=== PATIENT | male | born 1955 | race Caucasian/White ===

== ENCOUNTER 2017-08-28 09:22 | Observation (INO) ==
[2017-08-28] MEDS ORDERED: Naloxone 0.4 MG/ML INJ IVP PRN ×2 (18:28→18:37)
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
[2017-08-28] MEDS: *HR* Heparin 5,000 UNIT/ML VIAL SQ SCH (21:15)
[2017-08-29 06:17] LABS: Basophils % 0.2 %; Hematocrit 44.9 % (37.5-50.1); Hemoglobin 15.6 g/dL (12.9-16.9); Immature Granulocytes % 0.6 % (0-4); Lymphocytes # 1.1 K/mcL (0.6-4.6); Lymphocytes % 12.5 %; Mean Corpuscular HGB Conc 34.7 g/dL (31.6-35.5); Mean Corpuscular Hemoglobin 30.9 pg (28.0-33.3); Mean Corpuscular Volume 88.9 fL (83.0-100.0); Mean Platelet Volume 10.1 fL (9.4-12.4); Monocytes # 1.3 K/mcL (0.0-1.3); Monocytes % 14.2 %; Neutrophils # 6.4 K/mcL (1.6-8.9); Platelet Count 153 K/mcL (140-400); Red Blood Count 5.05 M/mcL (4.19-5.50); Red Cell Distribution Width 13.7 % (11.5-14.5); Segmented Neutrophils % 72.5 %
[2017-08-29] MEDS: *HR* Heparin 5,000 UNIT/ML VIAL SQ SCH (06:17)
[2017-08-29 06:35] LABS: BUN/Creatinine Ratio 13 (6-26); Blood Urea Nitrogen 13 mg/dL (8-26); Calcium 8.4 mg/dL (8.6-10.8); Carbon Dioxide 23 mEq/L (19-29); Chloride 106 mEq/L (98-109); Glucose 120 mg/dL (70-99); Osmolality,Calculated 287 (280-300); Potassium 4.1 mEq/L (3.5-4.5); Sodium 138 mEq/L (136-145); eGFR For African Americans > 60 (> 60); eGFR For Non-African Americans > 60 (> 60)
[2017-08-29] MEDS ORDERED: Acetaminophen 325 MG TABLET PO PRN (08:52)
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
[2017-08-29] MEDS ORDERED: CarBAMazepine XR (12 hr) 100 MG TAB PO SCH (10:30)
--- NOTE | 2017-08-29 11:32 | EEG/EMG/Oth Biometrics Report ---
EEG Procedure Report Date of procedure: 08/29/17 EEG Procedure: Routine EEG Procedure Note: pt with episodes of confusion, h/o Seizures on Carbamazepine for 10 years Technical Description: This is a multichannel digital EEG recording using the international 10-20 placement system. The resting record is fairly well organized and symmetric. A dominant posterior rhythm is seen. It consists of a 8 hertz 20-70 microvolt alpha rhythm. This attenuates with eye opening. During drowsiness, there is mild attenuation and slowing of the background rhythm. Stage II sleep was not achieved. Hyperventilation was not performed. Photic stimulation did not significantly alter the background rhythm. There was noted the presence of a rhythmic sharp discharge in the frontocentral region. This was preceded by some poorly-formed sharpish discharges. This episode lasted for about 2 to 4 seconds. Postepisode, there was some attenuation but not much slowing.these episodes seem to be generalized noted to be intermittent during the study, No clinical seizure activity was noted by the database technician. IMPRESSION: This is an abnormal EEG recording because of the presence of generalized epileptiform discharges. 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 Clinical correlation is suggested If indicated, repeat EEG and/or 24-hour ambulatory EEG monitoring might be useful in the future.
[2017-08-29 15:28] VITALS: BP 128/71
--- NOTE | 2017-08-29 15:54 | Internal Med Progress Note ---
Date of Encounter: 08/29/17 Time of Encounter: 15:40 - Assessment and plan (1) DVT prophylaxis Current Visit: Yes Status: Acute (2) History of seizure disorder Current Visit: Yes Status: Acute - Time Spent With Patient less than 15 minutes - Subjective Interval history: Seen and examined at bedside, patient is new to me. Information obtained from chart review and patient report. Says he is tired but overall significantly improved, feels like he is progressing back to baseline. Besides being tired, he has no complaints. Specifically denies vision changes, no slurred speech, no numbness or tingling. No bowel or bladder incontinence, no evidence of bite tongue. - Constitutional Vitals: Temp Pulse Resp BP Pulse Ox 99.7 F H 72 16 128/71 93 08/29/17 15:26 08/29/17 15:26 08/29/17 15:26 08/29/17 15:26 08/29/17 15:26 General appearance: Present: A&O X 3, no acute distress - Head Head exam: Present: atraumatic, normocephalic - Eye Eye exam: Present: PERRL, conjuntiva pink, sclera anicteric Pupils: Present: PERRL - Neck Neck exam general surgery: Present: supple, trachea midline. Absent: lymphadenopathy - Respiratory Respiratory exam: Present: CTAB. Absent: accessory muscle use, rales, rhonchi, wheezes - Cardiovascular Cardiovascular exam: Present: RRR, +S1, +S2. Absent: diastolic murmur, gallop, rubs, systolic murmur - GI/Abdominal GI/Abdominal exam: Present: normal bowel sounds, soft, no peritoneal signs. Absent: distended, tenderness - Extremities Exam Extremities exam: Present: warm, radial pulses palpable and symmetrical. Absent : calf tenderness, cyanotic, pedal edema - Neurological Exam Neurological exam: Present: CN II-XII intact, oriented X3, no focal deficits. Absent: pronater drift, facial droop, speech deficit - Skin Skin exam: Present: dry, intact Internal Medicine: Result - Labs CBC & Chem 7: 08/29/17 05:47 08/29/17 05:47 Labs: Short CBC 08/29/17 Range/Units 05:47 WBC 8.9 (4.3-11.1) K/mcL Hgb 15.6 (12.9-16.9) g/dL Hct 44.9 (37.5-50.1) % Plt Count 153 (140-400) K/mcL Neutrophils # 6.4 (1.6-8.9) K/mcL BMP 08/29/17 05:47 Sodium 138 Potassium 4.1 Chloride 106 Carbon Dioxide 23 BUN 13 Creatinine 1.01 Glucose 120 H Calcium 8.4 L - Impressions Impressions Brain MRI 08/28/17 12:25 IMPRESSION: 1. No acute intracranial abnormality. No acute infarct. 2. Minimal chronic microvascular ischemic change. 3. Minimal sinusitis. D/ / Ra Valiente MD / Ra Valiente MD Interpreting Provider: Ra Valiente MD Head CTA 08/28/17 14:00 IMPRESSION: No acute intracranial abnormality. Mild, less than 50%, stenosis of the internal carotid arteries by NASCET criteria. No intracranial flow-limiting stenosis or aneurysm. D/ / 08/28/2017 16:03:43 Herminia Tapia MD / Pat Santiago Interpreting Provider: Herminia Tapia MD Neck CTA 08/28/17 14:00 IMPRESSION: No acute intracranial abnormality. Mild, less than 50%, stenosis of the internal carotid arteries by NASCET criteria. No intracranial flow-limiting stenosis or aneurysm. D/ / 08/28/2017 16:03:43 Herminia Tapia MD / Pat Santiago Interpreting Provider: Herminia Tapia MD Echocardiogram 08/28/17 18:21 Impressions: LVEF 60%. Indeterminate diastolic function. Normal right ventricular structure and function. No significant valvular dysfunction. No pulmonary hypertension. Left Ventricular Wall Motion: Rest Echo Findings All wall segments showed normal motion. Findings: Study Quality * Technically adequate exam. ECG Findings * Normal sinus rhythm. Left Ventricle * LVEF 60%. * Normal LV chamber size, wall thickness and function. * Indeterminate diastolic function. E/A equivocal. Normal TD velocities. Right Ventricle * Normal right ventricular structure and function. Left Atrium * Normal left atrial size. Right Atrium * Normal right atrial size. Aortic Valve * Aortic valve not well visualized. * No aortic stenosis. * No aortic regurgitation. Mitral Valve * Normal mitral valve structure. * No mitral regurgitation. * No mitral stenosis. Tricuspid Valve * Tricuspid valve not well visualized. * No tricuspid regurgitation. Pulmonic Valve * Pulmonic valve is not well visualized. * No pulmonic stenosis. * No pulmonic regurgitation. Pulmonary Artery * Pulmonary artery not well visualized. Aorta * Normally sized aortic root. Pericardium * There is no pericardial effusion present. Interatrial Septum * Interatrial septum not well evaluated. IVC * The IVC is not well evaluated. Consult Discharge Plan - Plan Referrals: Salma Pearson, [employer] [Primary Care Provider] -
--- NOTE | 2017-08-29 15:59 | Discharge Summary ---
Date of Encounter: 08/29/17 Time of Encounter: 15:54 - Discharge Diagnosis (1) History of seizure disorder Priority: Primary Status: Acute Comments: Has known seizure disorder, on Tegretol at home. Now with altered cognition on day of presentation. Evaluated by neurology who suspects complex partial seizure. EEG consistent with seizure activity. Continue home Tegretol, add Keppra per neurology recommendations. No driving until he has been cleared by neurology. - Discharge Medications Prescriptions: levETIRAcetam [Keppra] 500 mg PO Q12HR #120 tablet Home Medications: carBAMazepine [Tegretol Xr] 400 mg PO BID 08/28/17 [History] levETIRAcetam [Keppra] 500 mg PO Q12HR #120 tablet 08/29/17 [Rx] Allergies/Adverse Reactions: 3 Allergy/AdvReac Type Severity Reaction Status Date / Time No Known Allergies Allergy Verified 08/28/17 07:15 Procedures/tests Complete & Pending: Procedures Performed prior 72 hours Category Date Time Status CT angio head [CT] Routine Cat Scan 08/28/17 14:[address] angio neck [CT] Routine Cat Scan 08/28/17 14:00 Completed MR head/brain wo con [MR] Routine MRI 08/28/17 12:25 Completed EV echocardiogram Routine Y 08/28/17 18:21 Completed Date of admission: 08/28/17 10:45 Primary care physician: Salma Pearson CNP Consults: 08/28/17 18:30 Consult to Neurology [CONS] Routine Consulting Provider: Neurology [facility] Reason for Consult: TIA/CVA rule out Time Notified: 18:00 Call Completed: Yes 08/29/17 11:45 Consult to Interpret Exam [CONS] Routine Consulting Provider: Nabil Bailon I Consult to Interpret Exam: Interpret EEG Discharging clinician: Magda Quiñonez Anticipated date of discharge: 08/29/17 - Patient Status Disposition: Home, Self-Care Condition: Good Functional capacity at discharge: independent ambulation Overall status at discharge: patient is progressing back to baseline - Discharge Instructions Instructions: Epilepsy (DC), Levetiracetam (By mouth) Follow Up With: Salma Pearson CNP [Primary Care Provider] - Additional Instructions: Do not drive or operate heavy machinery until cleared by neurology - Diet and Activity Activity: increase activity as tolerated Diet: advance to your usual diet Interval History: Seen and examined at bedside, patient is new to me. Information obtained from chart review and patient report. Says he is tired but overall significantly improved, feels like he is progressing back to baseline. Besides being tired, he has no complaints. Specifically denies vision changes, no slurred speech, no numbness or tingling. No bowel or bladder incontinence, no evidence of bite tongue. Discussed case with Dr. Bailon and magno to discharge from a neurology standpoint. We will add Keppra home medication. Patient is not allowed to drive until he has been cleared by neurologist, patient verbalizes understanding. Hospital course: See assessment and plan for hospital course. - Time Spent with Patient Total time spent providing and/or coordinating discharge services: - Constitutional Vitals: Temp Pulse Resp BP Pulse Ox 99.7 F H 72 16 128/71 93 08/29/17 15:26 08/29/17 15:26 08/29/17 15:26 08/29/17 15:26 08/29/17 15:26 General appearance: Present: A&O X 3, no acute distress - Head Head exam: Present: atraumatic, normocephalic - Eye Eye exam: Present: PERRL, conjuntiva pink, sclera anicteric Pupils: Present: PERRL - Neck Neck exam general surgery: Present: supple, trachea midline. Absent: lymphadenopathy - Respiratory Respiratory exam: Present: CTAB. Absent: accessory muscle use, rales, rhonchi, wheezes - Cardiovascular Cardiovascular exam: Present: RRR, +S1, +S2. Absent: diastolic murmur, gallop, rubs, systolic murmur - GI/Abdominal GI/Abdominal exam: Present: normal bowel sounds, soft, no peritoneal signs. Absent: distended, tenderness - Extremities Exam Extremities exam: Present: warm, radial pulses palpable and symmetrical. Absent : calf tenderness, cyanotic, pedal edema - Neurological Exam Neurological exam: Present: CN II-XII intact, oriented X3, no focal deficits. Absent: pronater drift, facial droop, speech deficit - Skin Skin exam: Present: dry, intact
[2017-08-29] MEDS ORDERED: levETIRAcetam 250 MG TABLET PO SCH (18:00)
== END 2017-08-29 16:28 | disposition home or self-care (01) ==
LOC: 3BNU
PROVIDERS: ADMIT Hospitalist; ATTEND Registered Nurse